=== PATIENT | female | born 1990 | race Two or more races ===

== ENCOUNTER 2025-03-14 08:41 | Emergency (ER) | payer MEDICAID, SELFPAY ==
[2025-03-14 08:57] VITALS: BP 121/77; PULSE 85; RESP 18; TEMP 36.8; O2SAT 100; BMI 24.3
--- NOTE | 2025-03-14 09:07 | XR_ITS ---
Examination: Complete OB ultrasound, less than 14 weeks, transabdominal Date and time of exam: March 14, 2025, 10:00 AM INDICATIONS: Right-sided pelvic pain beginning today Technique: Obstetrical ultrasound images less than 14 weeks performed via transabdominal imaging Findings: A normal shaped single intrauterine gestation is present in the uterus. CRL 5.1 cm corresponds to 11 weeks 6 days gestational age. Cardiac motion 155 BPM Ultrasonographic survey of visible and placental structures unremarkable. Amniotic fluid volume appears appropriate for this estimated gestational age. Right ovary 2.1 cm arterial flow. Left ovary 2.8 cm arterial flow No fluid in the cul-de-sac IMPRESSION: Viable intrauterine gestation 11 weeks 6 days.
--- NOTE | 2025-03-14 09:08 | EDNOTE_ITS ---
ED OB Contraction Preg RMI/HPI General Chief complaint: Abdominal Pain Stated complaint: 10 WEEKS OB, , right side abdominal pain Time Seen by Provider: 03/14/25 08:54 Source: patient Arrival date/time: 03/14/25 08:41 Mode of arrival: ambulatory Limitations: no limitations Related Data Previous Rx's ?Medication ?Instructions ?Recorded ferrous sulfate 325 mg (65 mg 325 mg PO Q OTHER DAY #3 0 tabs 03/14/25 iron) tablet (iron) ondansetron 4 mg disintegrating 4 mg PO Q8H PRN nausea and 03/14/25 tablet vomiting #14 tabs Allergies Allergy/AdvReac Type Severity Reaction Status Date / Time No Known Drug Allergies Allergy Verified 03/14/25 08:47 Review of Systems Review of Systems Systems Reviewed: All systems reviewed, normal except as documented Constitutional Constitutional: Reports system reviewed and no additional complaints, except as documented, Denies fatigue, Denies fever(s), Denies headache(s) and Denies weakness Eyes Eyes: Reports system reviewed and no additional complaints, except as documented, Denies blurry vision and Denies change in vision ENT Ears, Nose, Mouth, and Throat: Reports system reviewed and no additional complaints, except as documented, Denies otalgia, Denies headache(s), Denies nasal congestion, Denies throat swelling and Denies vertigo Cardiovascular Cardiovascular: Reports system reviewed and no additional complaints, except as documented, Denies chest pain, Denies dyspnea and Denies dyspnea on exertion Respiratory Respiratory: Reports system reviewed and no additional complaints, except as documented, Denies chest congestion, Denies cough, Denies dyspnea, Denies dyspnea on exertion and Denies wheezing Gastrointestinal Gastrointestinal: Reports system reviewed and no additional complaints, except as documented, Denies abdominal pain, Denies cramping, Denies nausea and Denies vomiting Genitourinary Genitourinary: Reports system reviewed and no additional complaints, except as documented and Reports pelvic pain Musculoskeletal Musculoskeletal: Reports system reviewed and no additional complaints, except as documented and Denies back pain Integumentary/Breasts Skin/Breast: Reports system reviewed and no additional complaints, except as documented and Denies wounds Neurologic Neurologic: Reports system reviewed and no additional complaints, except as documented, Denies confusion, Denies headache(s), Denies lack of coordination, Denies vertigo and Denies weakness Psychiatric Psychiatric: Reports system reviewed and no additional complaints, except as documented, Denies anxiety, Denies confusion, Denies depression, Denies paranoia, Denies suicidal ideation and Denies tactile hallucinations Endocrine Endocrine: Reports system reviewed and no additional complaints, except as documented and Denies fatigue Hematologic/Lymphatic Hematologic/Lymphatic: Reports system reviewed and no additional complaints, except as documented and Denies lymphadenopathy Allergic/Immunologic Allergic/Immunologic: Reports system reviewed and no additional complaints, except as documented, Denies throat swelling, Denies urticaria and Denies wheezing Past Medical History Social History SMOKING STATUS: Never smoker ED Exam General Limitations: Present no limitations General appearance: Present alert and in no apparent distress Head Head exam: Present atraumatic Eye Eye exam: Present normal appearance, PERRL and EOMI ENT ENT exam: Present normal exam, normal oropharynx and mucous membranes moist Neck Neck exam: Present normal inspection, full ROM and trachea midline Chest Chest inspection: Present normal inspection and symmetric chest wall rise Respiratory Respiratory exam: Present normal lung sounds bilaterally Cardiovascular Cardiovascular exam: Present regular rate, normal rhythm and normal heart sounds Abdominal Exam Abdominal exam: Present soft, tenderness and normal bowel sounds; Absent tenderness at McBurney's Point Abdominal tenderness: Present RLQ and mild Extremities Exam Extremities exam: Present normal inspection and full ROM Back Exam Back exam: Present normal inspection and full ROM Neurological Exam Neurological exam: Present alert, oriented X3 and CN II-XII intact Psychiatric Psychiatric exam: Present normal affect and normal mood Skin Skin exam: Present warm, dry, intact and normal color Course Quality Measures none Orders Category Date Time Status US OB <= 14 weeks fetus Stat Exams 03/14/25 09:07 Completed US abdomen limited Stat Exams 03/14/25 09:08 Completed US renal BI Stat Exams 03/14/25 09:08 Completed ABO/RH Type Stat Lab 03/14/25 09:15 Completed Beta HCG,Quantitative Stat Lab 03/14/25 09:15 Completed CBC Stat Lab 03/14/25 09:15 Completed CMP [Comprehensive Metabolic Panel] Stat Lab 03/14/25 09:15 Completed Path Review Blood Smear Stat Lab 03/14/25 09:15 Completed UA [Urinalysis] Stat Lab 03/14/25 10:48 Completed Acetaminophen Tab [Tylenol Tab] Med 03/14/25 12:29 Discontinued 650 mg PO X1 ONE Ondansetron Inj [Zofran Inj] Med 03/14/25 09:35 Discontinued 4 mg IM X1 ONE Vital Signs Vital signs: Vital Signs Temperature 98.3 F 03/14/25 08:57 Pulse Rate 85 03/14/25 08:57 Respiratory Rate 18 03/14/25 08:57 Blood Pressure 121/77 03/14/25 08:57 Pulse Oximetry (%) 100 03/14/25 08:57 Oxygen Delivery Method Room Air 03/14/25 08:57 OB/Uterine Contractions MDM Narrative MDM Narrative:: 35-year-old female with no known medical history presents to the emergency room with a chief complaint of right sided lower abdominal pain x 1 day. Patient is currently 10 weeks she is a G3, P2. Patient is hemodynamically stable and in no apparent distress Physical examination shows some right lower abdominal tenderness. Patient has some tenderness with palpation but there is a negative to previous McBurney's point. The patient is currently 11 weeks . Ultrasound OB was completed and was negative for any acute findings. There is of viable intrauterine gestation at 11 weeks and 6 days and heart tones at 155 bpm. Ultrasound of her appendix was negative for any acute findings. Ultrasound renal was negative for any calculi. There is no leukocytosis. SALES MANAGEMENT INTERN on-call Dr Caldwell was consulted due to her low hemoglobin level and pelvic pain. Based on the recommendations the patient could be discharged and educated to return to the emergency room worsening symptoms get worse. Patient was discharged and educated to follow-up with primary care provider in the next 24 to 48 hours and return to the emergency room for any evidence of worsening signs or symptoms Patient data External records reviewed:: [facility] previous records Clinical information provided by:: patient Social determinants that could affect healthcare access:: none Patient has the following chronic illnesses:: No chronic illness How is presenting disease/condition affected by chronic disease/condition?: no chronic disease Evaluation data The following diagnostics were reviewed and interpreted by me:: lab results and radiology exam(s) Lab and/or radiology exams considered but not ordered:: Labs and radiology exams considered and ordered Interpretation Summary: Ultrasound OB-Findings: A normal shaped single intrauterine gestation is present in the uterus. CRL 5.1 cm corresponds to 11 weeks 6 days gestational age. Cardiac motion 155 BPM Ultrasonographic survey of visible and placental structures unremarkable. Amniotic fluid volume appears appropriate for this estimated gestational age. Right ovary 2.1 cm arterial flow. Left ovary 2.8 cm arterial flow No fluid in the cul-de-sac IMPRESSION: Viable intrauterine gestation 11 weeks 6 days. Abdominal ultrasound-Findings: No sonographic visualization appendix IMPRESSION: No sonographic visualization appendix Renal ultrasound-FINDINGS: Right kidney 10.6 cm cortex 1.6 cm Left kidney 11.8 cm cortex 1.7 cm No renal calculi or hydronephrosis Contracted urinary bladder IMPRESSION: No renal calculi or hydronephrosis Medications / Prescriptions Medications or Prescriptions considered but not ordered:: Medication given Medication administrations:: Medication Administration History Discontinued Medications Acetaminophen (Acetaminophen 325 Mg Tablet) 650 mg PO X1 ONE Stop: 03/14/25 12:30 Last Admin: 03/14/25 12:58 Dose: 650 mg Documented By: Ondansetron HCl (Ondansetron Inj 2 Mg/Ml Inj 2 Ml) 4 mg IM X1 ONE; Protocol Stop: 03/14/25 09:36 Last Admin: 03/14/25 09:46 Dose: 4 mg Documented By: Medication given Consultations Consultation(s) initiated? (list below): No Diagnosis OB Contractions Differential Diagnosis: other (Pelvic pain/ectopic /th reatened /appendicitis/renal calculi) Most likely diagnosis given after review of the tests above:: Pelvic pain Admission Indicated Admission indicated?: not indicated Explain why admission is indicated or not indicated:: N/A Admission Request Was there a request for admission?: No Disposition Plan Disposition Plan: Discharge Discharge Attestation Discharge Attestation: The patient and all family members were given an opportunity to ask questions and understood the discharge instructions. Discharge instructions specifically effects, indications for sooner follow up or return to the emergency department, and the expected course of current diagnosis. Patient condition: Stable Discharge Plan Plan Patient Disposition: HOME (Self Care) Discharge Disposition comment: Stable Prescriptions/Referrals Prescriptions/Med Rec: New ondansetron 4 mg tablet,disintegrating 4 mg PO Q8H PRN (Reason: nausea and vomiting) Qty: 14 0RF ferrous sulfate [iron] 325 mg (65 mg iron) tablet 325 mg PO Q OTHER DAY Qty: 30 0RF Referrals: Rinku Vazquez MD [Primary Care Provider, SALES MANAGEMENT INTERN] - In 1 week Problem List Clinical Impression: Pelvic pain affecting Patient/Caregiver Discharge Instructions Education Materials: ED Pelvic Pain, Unknown Cause Additional Instructions: Por favor, consulte con kennedy m?dico de cabecera en las pr?ximas 24 a 48 horas. La ecograf?a de kennedy embarazo estuvo dentro de los l?mites normales. Si evelia signos y s?ntomas persisten, regrese a la sathya de emergencias de inmediato. Si observa cualquier evidencia de empeoramiento de los signos o s?ntomas, regrese a la sathya de emergencias. Print Language: Cypriot Stand Alone Forms: Cyn Award Info., Work/School Release, Patient Portal Info Letter PA/[employer] Supervising Physician PA/[employer] Supervising Physician: Dr. Brown
--- NOTE | 2025-03-14 09:08 | XR_ITS ---
Examination: Abdomen sonogram, Limited Date and time of exam: March 14, 2025, 10:00 AM INDICATIONS: Onset right lower abdominal pain today Technique: Real-time vera scale transabdominal sonographic images of the lower abdomen obtained. Findings: No sonographic visualization appendix IMPRESSION: No sonographic visualization appendix
--- NOTE | 2025-03-14 09:08 | XR_ITS ---
Examination: Retroperitoneal ultrasound, complete Technique: Multiple high resolution grayscale images of the retroperitoneum obtained, including kidneys and bladder. Exam date and time:March 14, 2025, 0956 hours INDICATIONS: Onset right-sided flank pain today FINDINGS: Right kidney 10.6 cm cortex 1.6 cm Left kidney 11.8 cm cortex 1.7 cm No renal calculi or hydronephrosis Contracted urinary bladder IMPRESSION: No renal calculi or hydronephrosis
[2025-03-14 09:32] LABS: Basophils # (Auto) 0.0 Thou/mm3 (0.0-0.2); Basophils % (Auto) 0 % (0-2.5); Eosinophils # (Auto) 0.1 Thou/mm3 (0.0-0.5); Eosinophils % (Auto) 1 % (0-10); Hematocrit 26.7 % (36.0-46.0); Immature Granulocytes Auto 0.05 Thou/mm3 (0.00-0.00); Lymphocytes # (Auto) 1.6 Thou/mm3 (1.0-4.8); Lymphocytes % (Auto) 17 % (10-50); Mean Corpuscular HGB Conc 28.1 g/dl (31.0-37.0); Mean Corpuscular Hemoglobin 17.4 pg (25.0-35.0); Mean Corpuscular Volume 62 fL (80-100); Monocytes # (Auto) 0.7 Thou/mm3 (0.0-0.8); Monocytes % (Auto) 7 % (0-12); Neutrophils # (Auto) 7.4 Thou/mm3 (1.8-7.7); Neutrophils % (Auto) 75 % (37-80); Nucleated Red Blood Cell # 0.00 Thou/mm3 (0.00-0.00); Nucleated Red Blood Cell % 0 /100 WBC (0); Platelet Count 326 Thou/mm3 (140-440); RDW Standard Deviation 48.6 fL (36.4-46.3); Red Blood Count 4.31 Miln/mm3 (4.00-5.20); White Blood Count 9.9 Thou/mm3 (3.6-11.0)
[2025-03-14] MEDS: ONDANSETRON INJ 2 MG/ML INJ 2 ML 4 MG IM (09:46)
[2025-03-14 09:49] LABS: Hemoglobin 7.5 g/dL (12.0-16.0)
[2025-03-14 10:04] LABS: Path Review Blood Smear Sent to Pathologist
[2025-03-14 10:19] LABS: Alanine Aminotransferase 8 U/L (10-49); Albumin, Serum 4.6 gm/dL (3.5-5.0); Albumin/Globulin Ratio 1.9 (1.2-2.2); Alkaline Phosphatase 38 U/L (46-116); Anion Gap 10 (7-16); Aspartate Amino Transferase 17 U/L (0-34); BUN/Creatinine Ratio 10 Ratio (12-20); Bilirubin,Total 0.3 mg/dL (0.3-1.2); Blood Urea Nitrogen 7 mg/dL (9-23); Calcium 9.6 mg/dL (8.3-10.6); Calcium (Corrected) 9.6 mg/dL (8.5-10.1); Carbon Dioxide 22.5 mMol/L (20.0-31.0); Chloride 108 mMol/L (98-107); Creatinine (Component) 0.7 mg/dL (0.6-1.3); Estimated Creatinine Clearance 100.0 mL/min (>60); Globulin 2.4 gm/dL (2.3-3.5); Glucose 102 mg/dL (74-106); Osmolality,Calculated 277 (275-295); Potassium 4.3 mMol/L (3.4-5.1); Sodium 140 mMol/L (136-145); Total Protein 7.0 gm/dL (5.7-8.2); eGFR > 60 See Note
[2025-03-14 10:40] LABS: Beta HCG,Quantitative 154741 mIU/mL (<5.0)
[2025-03-14 10:51] LABS: Collection Type, Urine Clean Catch
[2025-03-14 11:06] LABS: Amorphous Crystals,Urine Present (Absent); Bacteria,Urine 2+; Bilirubin,Urine Negative (Negative); Blood,Urine Negative (Negative); Clarity,Urine Turbid (Clear/Hazy); Color,Urine Lt-Yellow (Lt Yel-Yel); Glucose, Urine Negative (Negative); Ketones,Urine Negative (Negative); Leukocyte Esterase,Urine Negative (Negative); Nitrite,Urine Negative (Negative); PH,Urine 6.5 (5.0-7.0); Protein,Urine Negative (Neg - Trace); RBC,Urine 12 /hpf (0-3); Specific Gravity,Urine 1.019 (1.001-1.035); Squamous Epithelial Cell,Urine 7 /hpf (0-5); Urobilinogen,Urine Negative mg/dL (0.0-1.0); WBC,Urine 1 /hpf (0-5)
[2025-03-14] MEDS: ACETAMINOPHEN 325 MG TABLET 650 MG PO (12:58)
== END 2025-03-14 13:14 | disposition home or self-care (01) ==
PROVIDERS: Emergency Provider Nurse Practitioner Family; PCP Obstetrics & Gynecology
DX: O26.891 Other specified pregnancy related conditions, first trimester (principal); R10.2 Pelvic and perineal pain; R10.31 Right lower quadrant pain; Z3A.11 11 weeks gestation of pregnancy
CPT/HCPCS: 36415; 76705; 76770; 76801; 80053; 81001; 84702; 85025; 86900; 86901; 99284; J2405; A9270